=== PATIENT | female | born 1960 | race Two or more races ===

== ENCOUNTER 2019-11-03 07:50 | Day surgery (SDC) | payer OTHER ==
[~2019-11-03 07:50] MED LIST: LOSARTAN-HCTZ1 EACH PO; SYNTHROID125 MCG PO
[2019-11-03] MEDS ORDERED: PERCOCET 5-3251 EACH PO (11:24)
[2019-11-03] MEDS ORDERED: COLACE100 MG PO (11:24)
== END 2019-11-03 15:00 | disposition home or self-care (01) ==
LOC: CIR.AMB 07:50
DX: K62.4 Stenosis of anus and rectum (principal); K60.1 Chronic anal fissure